=== PATIENT | male | born 1985 | race Caucasian/White ===

== ENCOUNTER 2019-06-29 20:25 | Emergency (ER) | payer SELFPAY ==
--- NOTE | 2019-06-29 20:40 | EDM.PDOC ---
ED HPI GENERAL MEDICAL PROBLEM - General Chief Complaint: Lower Extremity Injury/Pain Stated Complaint: POSS BROKEN LEG Time Seen by Provider: 06/29/19 20:35 Source of Information: Reports: Patient, RN Notes Reviewed - History of Present Illness INITIAL COMMENTS - FREE TEXT/NARRATIVE: 34 year old male injured R ankle a short time ago, was running in a field, somehow fell and twisted ankle. Has been unable to bear weight. Has been drinking alcohol, no other pain or injury. Right Ankle Pain Score (Numeric/FACES): 5 - Related Data Allergies Allergy/AdvReac Type Severity Reaction Status Date / Time No Known Allergies Allergy Verified 06/29/19 20:40 Home Meds: Home Meds Acetaminophen/HYDROcodone [[place] 325-5 MG] 1 tab PO Q6H PRN #14 tablet 06/29/19 [Rx] Review of Systems - Review of Systems Review Of Systems: See Below Constitutional: Reports: No Symptoms Eyes: Reports: No Symptoms Nose: Reports: No Symptoms Mouth/Throat: Reports: No Symptoms Respiratory: Denies: Shortness of Breath Cardiovascular: Denies: Chest Pain GI/Abdominal: Denies: Abdominal Pain, Nausea, Vomiting Musculoskeletal: Reports: Joint Pain (severe pain r ankle and r lower leg. ) ED EXAM, GENERAL - Physical Exam Exam: See Below General Appearance: Alert, Moderate Distress Nose: Normal Inspection Throat/Mouth: Normal Inspection Head: Atraumatic Neck: Supple Respiratory/Chest: No Respiratory Distress, Lungs Clear Cardiovascular: Regular Rate, Rhythm Extremities: Joint Swelling (swelling of distal lower leg, bilat ankle), Limited Range of Motion (R ankle), Other (very tender distal R lower leg and bilat ankle, foot nontender) Neurological: Alert, Oriented, No Motor/Sensory Deficits, Other (moderately intoxicated) Skin Exam: Warm, Dry, Normal Color ED TRAUMA EXTREMITY PROCEDURES - Splinting Right Lower Extremity Splint Site: R lower leg and ankle Pre-Procedure NV Status: Normal Post-Procedure NV Status: Normal Splint Material: Fiberglass Splint Design: Sugar Tong, Posterior Applied & Form Fitted By: Provider Provider Post-Splint Application NV Check: NV Status Normal Course - Vital Signs Last Recorded V/S: Last Vital Signs Temp 97.9 F 06/29/19 20:36 Pulse 94 06/29/19 20:36 Resp 16 06/29/19 20:36 BP 143/97 H 10/07/19 20:36 Pulse Ox 100 06/29/19 20:36 - Re-Assessments/Exams Free Text/Narrative Re-Assessment/Exam: 07/02/19 11:29 X rays showed fx of distal fibula, probable hairline medial mallelus and nondisplace fx posterior tibia. See radiology report for details. Discharge instr. as documented. Departure - Departure Time of Disposition: 21:44 Disposition: Home, Self-Care 01 Preliminary Cause of *Q: Sepsis & Multi System Organ Failure Clinical Impression: Trimalleolar fracture of right ankle Qualifiers: Encounter type: initial encounter Fracture type: closed Qualified Code(s): S82.851A - Displaced trimalleolar fracture of right lower leg, initial encounter for closed fracture - Discharge Information Prescriptions: Acetaminophen/HYDROcodone [[place] 325-5 MG] 1 tab PO Q6H PRN #14 tablet PRN Reason: Pain Instructions: Ankle Fracture, [id number] Referrals: PCP,None [Primary Care Provider] - Forms: ED Department Discharge Additional Instructions: Fiberglass splint R ankle and lower leg. Keep this dry. Non weight bearing. Use crutches once you are sober and able to do that. Ice packs and elevation for swelling. Tylenol for mild to moderate pain or hydrocodone if needed for severe pain. Do not take tylenol and hydrocodone at the same time. Do not drink alcohol and take hydrocodone at the same time. See Dr Tovar, Orthopedist in about 2 to 3 days. Call [phone] for appointment.
--- NOTE | 2019-06-30 07:00 | CR ---
Right tibia and fibula: AP and lateral views of the right tibia and fibula were obtained. Comparison: No previous study. Trimalleolar fracture is again noted. Medial and lateral joint spaces are maintained within the knee. Soft tissue swelling is noted around the ankle. No additional fracture is seen within the proximal tibia or fibula. Impression: 1. Trimalleolar fracture is again noted. Soft tissue swelling. 2. Right tibia and fibula study are otherwise unremarkable. Diagnostic code #3
--- NOTE | 2019-06-30 07:00 | CR ---
Right ankle: Four views of the right ankle were obtained. Comparison: Prior right ankle study. Distal fibular fracture is identified to the lateral malleolus. Fracture line is widened by around 1 mm. Posterior malleolus fracture is noted. Medial malleolus also shows a nondisplaced fracture. Soft tissue swelling is noted. No additional abnormality is appreciated. Impression: 1. Trimalleolar fracture with soft tissue swelling. Greatest fracture displacement is within the fibula around 1 mm. 2. Soft tissue swelling. Diagnostic code #3
== END 2019-06-29 22:20 | disposition home or self-care (01) ==
LOC: JD.ED 20:25
DX: S82.851A Displaced trimalleolar fracture of right lower leg, initial encounter for closed fracture (principal); W01.0XXA Fall on same level from slipping, tripping and stumbling without subsequent striking against object, initial encounter; X50.1XXA Overexertion from prolonged static or awkward postures, initial encounter; Y93.02 Activity, running; Y92.89 Other specified places as the place of occurrence of the external cause
CPT/HCPCS: 29515; 73590-26-RT; 73590-RT; 73610-26-RT; 73610-RT; 99283; 99283-25

== ENCOUNTER 2020-03-13 01:11 | Emergency (ER) | payer OTHER ==
--- NOTE | 2020-03-13 01:47 | EDM.PDOC ---
ED HPI GENERAL MEDICAL PROBLEM - General Chief Complaint: General Stated Complaint: DETOX Time Seen by Provider: 03/13/20 01:42 Source of Information: Reports: Patient, Police History Limitations: Reports: No Limitations - History of Present Illness INITIAL COMMENTS - FREE TEXT/NARRATIVE: This is a 35-year-old male. Apparently he was drunk in public and was picked up by the police. He is brought here to the ER for medical clearance. He walked in on his own accord and he has been cooperative. He seems to be somewhat depressed and upset with himself. He keeps saying that he had a very bad week and a very bad weekend and he had been drinking some. He denies any injuries. He denies any pain. He was just very upset that he could not get his job done in [place] that they wanted him to get done and so he is very down on himself. - Related Data Allergies Allergy/AdvReac Type Severity Reaction Status Date / Time No Known Allergies Allergy Verified 03/13/20 01:23 Home Meds: Home Meds . [No Known Home Meds] 03/13/20 [History] Past Medical History - Past Health History Medical/Surgical History: Denies Medical/Surgical History Musculoskeletal History: Reports: Fracture - Past Surgical History Musculoskeletal Surgical History: Reports: ORIF Social & Family History - Tobacco Use Smoking Status *Q: Never Smoker - Caffeine Use Caffeine Use: Reports: None - Recreational Drug Use Recreational Drug Use: No ED ROS GENERAL - Review of Systems Review Of Systems: See Below Constitutional: Reports: No Symptoms HEENT: Reports: No Symptoms Respiratory: Reports: No Symptoms Cardiovascular: Reports: No Symptoms Endocrine: Reports: No Symptoms GI/Abdominal: Reports: No Symptoms : Reports: No Symptoms Musculoskeletal: Reports: No Symptoms Skin: Reports: No Symptoms Neurological: Reports: No Symptoms Psychiatric: Reports: Depression Hematologic/Lymphatic: Reports: No Symptoms ED EXAM, GENERAL - Physical Exam Exam: See Below Exam Limited By: Intoxication General Appearance: Alert, WD/WN, No Apparent Distress Eye Exam: Bilateral Eye: Normal Inspection Ears: Normal External Exam Nose: Normal Inspection Throat/Mouth: Normal Lips, Normal Voice, No Airway Compromise Head: Normocephalic Neck: Supple Respiratory/Chest: No Respiratory Distress, Lungs Clear, Normal Breath Sounds Cardiovascular: Regular Rate, Rhythm, No Murmur GI/Abdominal: Soft Back Exam: Full Range of Motion Extremities: Normal Inspection, Normal Range of Motion Neurological: Alert, Oriented, Other (Patient does know he is in the hospital he does know he is under arrest by the police to go to detox, he also knows it is the weekend and at nighttime.) Psychiatric: Depressed Mood, Tearful Skin Exam: Warm, Dry Course - Vital Signs Last Recorded V/S: Last Vital Signs Temp 97.2 F 03/13/20 01:24 Pulse 87 03/13/20 01:24 Resp 17 03/13/20 01:24 BP 138/105 H 03/13/20 01:24 Pulse Ox 97 03/13/20 01:24 - Re-Assessments/Exams Free Text/Narrative Re-Assessment/Exam: 03/13/20 01:45 I sat and talk with the patient for about 20 minutes. 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 He says that he had a very bad week and a very bad weekend so he [place] to get a few drinks but he is overdone it. He indicates he is going to detox and that is what he wants to do now, but I estimate this might change later. Departure - Departure Time of Disposition: 01:42 Disposition: Home, Self-Care 01 Condition: Fair Clinical Impression: Alcohol ingestion - Discharge Information *PRESCRIPTION DRUG MONITORING PROGRAM REVIEWED*: Not Applicable *COPY OF PRESCRIPTION DRUG MONITORING REPORT IN PATIENT RONEN: Not Applicable Referrals: PCP,None [Primary Care Provider] - Additional Instructions: This patient has been observed by the police as well as myself for approximately 1 hour, he is remained stable with good vital signs. He is alert and able to ambulate on his own, I do not anticipate a deterioration of his condition at this time, if there is a change in his condition return to the ER Sepsis Event Note (ED) - Evaluation Sepsis Screening Result: No Definite Risk - Focused Exam Vital Signs: Vital Signs Temp Pulse Resp BP Pulse Ox 03/13/20 01:24 97.2 F 87 17 138/105 H 97
== END 2020-03-13 01:47 | disposition home or self-care (01) ==
LOC: JD.ED 01:11
DX: T51.91XA Toxic effect of unspecified alcohol, accidental (unintentional), initial encounter (principal)
CPT/HCPCS: 99282; 99283